=== PATIENT | female | born 1960 | race Caucasian/White ===

== ENCOUNTER 2017-09-01 09:40 | Outpatient (CLI) | payer MEDICAID | END 2017-09-01 23:59 | disposition home or self-care (01) | LOC: RAD 09:40 | PROVIDERS: ATTEND Physician Assistant Medical | DX: I71.4 Abdominal aortic aneurysm, without rupture (principal) | CPT/HCPCS: 93978 ==

== ENCOUNTER 2017-09-16 12:18 | Emergency (ER) | payer MEDICAID ==
[~2017-09-16] VITALS: Ht 167.6 cm; Wt 50.0 kg
[2017-09-16 12:27] VITALS: BP 126/61
== END 2017-09-16 14:49 | disposition home or self-care (01) ==
LOC: ER 12:19
DX: M79.661 Pain in right lower leg (principal); Z85.3 Personal history of malignant neoplasm of breast; Z79.811 Long term (current) use of aromatase inhibitors
CPT/HCPCS: 93971; 99284